=== PATIENT | female | born 1960 | race Two or more races ===

== ENCOUNTER 2018-10-17 16:17 | Outpatient (CLI) | payer OTHER | END 2018-10-17 17:08 | disposition home or self-care (01) | LOC: RAD 16:17 | DX: M54.2 Cervicalgia (principal); M41.85 Other forms of scoliosis, thoracolumbar region; M81.0 Age-related osteoporosis without current pathological fracture; M85.80 Other specified disorders of bone density and structure, unspecified site; L23.89 Allergic contact dermatitis due to other agents ==

== ENCOUNTER 2021-08-21 09:00 | Outpatient (CLI) | payer OTHER | END 2021-08-21 09:15 | disposition home or self-care (01) | LOC: PPH VACUNA 09:00 | PROVIDERS: ATTEND Emergency Medicine Pediatric Emergency Medicine | DX: Z23 Encounter for immunization (principal) ==

== ENCOUNTER 2022-03-27 09:15 | Outpatient (CLI) | payer OTHER | END 2022-03-27 09:30 | disposition home or self-care (01) | LOC: MAMO-SONO 09:15 | PROVIDERS: ATTEND General Practice | DX: N20.0 Calculus of kidney (principal); R10.822 Left upper quadrant rebound abdominal tenderness; R10.12 Left upper quadrant pain; Z12.39 Encounter for other screening for malignant neoplasm of breast ==